=== PATIENT | female | born 1975 | race African-American/Black ===

== ENCOUNTER 2017-05-19 12:09 | Emergency (ER) | payer MEDICAID ==
[~2017-05-19] VITALS: Ht 165.1 cm; Wt 102.0 kg
[~2017-05-19 12:09] MED LIST: ALBU18HF2 IH; FLUT1DIS3 IH; LEVO500T2 PO
[2017-05-19] MEDS ORDERED: ACETAMINOPHEN 325MG TABLET PO ONE (18:15)
[2017-05-19] MEDS ORDERED: IBUPROFEN 800MG TABLET PO ONE (18:15)
[2017-05-19 18:46] VITALS: BP 155/90
== END 2017-05-19 18:46 | disposition home or self-care (01) ==
LOC: ER 13:50
DX: M54.5 Low back pain (principal); G89.29 Other chronic pain; I10 Essential (primary) hypertension; E66.9 Obesity, unspecified; J44.1 Chronic obstructive pulmonary disease with (acute) exacerbation; F17.200 Nicotine dependence, unspecified, uncomplicated
CPT/HCPCS: 99283

== ENCOUNTER 2018-02-01 09:21 | Inpatient (IN) | payer MEDICAID ==
[~2018-02-01] VITALS: Ht 175.3 cm; Wt 104.3 kg
[2018-02-01 10:39] LABS: BASOPHILS % 0.3 % (0.0-2.0); EOSINOPHILS % 2.7 % (0.0-5.0); HEMATOCRIT. 36.5 % (36.0-48.0); HEMOGLOBIN. 11.2 g/dL (12.0-16.0); MEAN CORPUSCULAR VOLUME 81.2 fL (81.0-99.0); MEAN PLATELET VOLUME 8.3 fl (7.4-10.4); MONOCYTES % 6.6 % (2.0-8.0); NEUTROPHILS % 39.4 % (40.0-76.0); PLATELET 209 x1000/uL (130-400); RED BLOOD CELL COUNT 4.49 mill/uL (4.2-5.4); RED CELL DISTRIBUTION WIDTH 34.6 % (11.6-14.6)
[2018-02-01 10:47] LABS: CHLORIDE 104 mEq/L (98-107)
[2018-02-01 10:54] LABS: PROTHROMBIN TIME 9.7 sec (9.1-11.1)
[2018-02-01 11:03] LABS: ETHANOL BLOOD 369 mg/dL
[2018-02-01 11:06] LABS: HCG SCREEN NEGATIVE
[2018-02-01] MEDS ORDERED: VANCOMYCIN 1 G PREMIX 200 ML IV SCH ×2 (11:15→13:45)
[2018-02-01] MEDS ORDERED: PIPERACILLIN/TAZOBACTAM 3.375GM/50ML PREMIX IV ONE (11:15)
[2018-02-01 11:20] LABS: PLATELET ESTIMATE NORMAL
[2018-02-01] MEDS ORDERED: FOLIC ACID 1 MG, THIAMINE HCL 100 MG, MVI, ADULT NO.1 10 ML in DEXTROSE 5% WATER 1,000 ML IV ONE ×4 (12:45)
[2018-02-01] MEDS ORDERED: ACETAMINOPHEN 325MG TABLET PO PRN ×2 (13:15→13:45)
[2018-02-01] MEDS ORDERED: IPRATROPIUM/ALBUTEROL 0.5-3(2.5)MG/3ML NEB INH PRN (13:45)
[2018-02-01] MEDS ORDERED: NA PHOS,M-B/NA PHOS,DI-BA ENEMA 118ML PR PRN (13:45)
[2018-02-01] MEDS ORDERED: HYDROMORPHONE HCL/PF 2MG/ML CPJ IV PRN (13:45)
[2018-02-01] MEDS ORDERED: PIPERACILLIN/TAZ 3.375G PREMIX 50 ML IV SCH (13:45)
[2018-02-01] MEDS ORDERED: MAGNESIUM/ALUMINUM HYDROXIDE/SIMETHICONE 30ML UDC PO PRN (13:45)
[2018-02-01] MEDS ORDERED: HYDROCODONE/ACETAMINOPHEN 5/325MG TABLET PO PRN (13:45)
[2018-02-01] MEDS ORDERED: HYDRALAZINE 20MG/ML VIAL IV PRN (13:45)
[2018-02-01] MEDS ORDERED: CLONIDINE 0.1MG TABLET PO PRN (13:45)
[2018-02-01] MEDS ORDERED: LORAZEPAM 2MG/ML CPJ IV PRN (13:45)
[2018-02-01] MEDS ORDERED: GUAIFENESIN 200MG/10ML SUGAR FREE UDC PO PRN (13:45)
[2018-02-01] MEDS ORDERED: DIPHENHYDRAMINE 50MG/ML VIAL IV PRN (13:45)
[2018-02-01] MEDS ORDERED: ONDANSETRON HCL 4MG/2ML INJ IV PRN (13:45)
[2018-02-01] MEDS ORDERED: DOCUSATE SODIUM 100MG CAPSULE PO PRN (13:45)
[2018-02-01 16:09] LABS: CLARITY URINE CLEAR (CLEAR); COLOR URINE YELLOW (YELLOW); KETONES URINE NEGATIVE (NEGATIVE); LEUKOCYTE ESTERASE URINE NEGATIVE (NEGATIVE); NITRITE URINE NEGATIVE (NEGATIVE); OCCULT BLOOD URINE NEGATIVE (NEGATIVE); PH URINE 5.5 (4.5-8.0); PROTEIN URINE NEGATIVE (NEGATIVE); SPECIFIC GRAVITY URINE 1.006 (1.005-1.030); UROBILINOGEN URINE 0.2 E.U./dL (0.2-1.0)
[2018-02-01 16:27] LABS: *AMPHETAMINES SCREEN URINE NEGATIVE (NEGATIVE); *BARBITURATES SCREEN URINE NEGATIVE (NEGATIVE); *BENZODIAZEPINES SCREEN URINE NEGATIVE (NEGATIVE); *COCAINE SCREEN URINE NEGATIVE (NEGATIVE)
[2018-02-01 16:28] LABS: CANNABINOID URINE SCREEN NEGATIVE (NEGATIVE); METHADONE URINE SCREEN NEGATIVE (NEGATIVE); OPIATES URINE SCREEN NEGATIVE (NEGATIVE); PHENCYCLIDINE URINE SCREEN NEGATIVE (NEGATIVE)
[2018-02-01 18:00] VITALS: BP 115/76
[2018-02-01] MEDS: SODIUM CHLORIDE 0.9% 1,000 ML IV SCH (19:09)
[2018-02-01 20:00] VITALS: BP 104/59
[2018-02-01 20:24] VITALS: BP 104/59
[2018-02-01] MEDS: ENOXAPARIN 30MG/0.3ML SYR SUBCUT SCH (20:50)
[2018-02-01] MEDS: SODIUM CHLORIDE 0.9% INJ 3ML FLUSH IVF SCH (20:52)
[2018-02-02] VITALS: BP 110/55
[2018-02-02 04:00] VITALS: BP 100/37
[2018-02-02] MEDS: SODIUM CHLORIDE 0.9% INJ 3ML FLUSH IVF SCH ×2 (06:01→13:56)
[2018-02-02 06:32] LABS: HEMATOCRIT. 23.3 % (36.0-48.0); HEMOGLOBIN. 7.3 g/dL (12.0-16.0); MEAN CORPUSCULAR HEMOGLOBIN 25.2 pg (28.0-32.0); MEAN CORPUSCULAR VOLUME 80.3 fL (81.0-99.0); MEAN PLATELET VOLUME 8.3 fl (7.4-10.4); PLATELET 143 x1000/uL (130-400); RED CELL DISTRIBUTION WIDTH 35.2 % (11.6-14.6)
[2018-02-02 07:10] LABS: CHLORIDE 107 mEq/L (98-107)
[2018-02-02 07:21] LABS: C REACTIVE PROTEIN QUANT 2.5 mg/L (0.0-3.0)
[2018-02-02 07:24] LABS: CREATINE KINASE 74 IU/L (26-192)
[2018-02-02 08:00] VITALS: BP 105/51
[2018-02-02] MEDS: SODIUM CHLORIDE 0.9% 1,000 ML IV SCH ×4 (08:54→22:21)
[2018-02-02] MEDS: ENOXAPARIN 30MG/0.3ML SYR SUBCUT SCH ×2 (08:55→20:21)
[2018-02-02 10:52] LABS: PLATELET ESTIMATE NORMAL
[2018-02-02 12:00] VITALS: BP 112/51
[2018-02-02 16:00] VITALS: BP 120/48
[2018-02-02 20:00] VITALS: BP 130/74
[2018-02-03] VITALS (7 sets, daily range): BP systolic 148–161; BP diastolic 65–86
[2018-02-03] MEDS: SODIUM CHLORIDE 0.9% 1,000 ML IV SCH ×2 (01:50→05:05)
[2018-02-03] MEDS: ENOXAPARIN 30MG/0.3ML SYR SUBCUT SCH (08:52)
[2018-02-03 14:04] LABS: HEMATOCRIT 22.9 % (36.0-48.0); HEMOGLOBIN 7.2 g/dL (12.0-16.0); MEAN CORPUSCULAR HEMOGLOBIN 25.1 pg (28.0-32.0); PLATELET 74 x1000/uL (130-400); RED BLOOD CELL COUNT 2.87 mill/uL (4.2-5.4); RED CELL DISTRIBUTION WIDTH 34.7 % (11.6-14.6)
== END 2018-02-03 17:55 | disposition home or self-care (01) | DRG 344 ==
LOC: ER 09:21 → 5WST 12:48 → EDBEDREQ 12:58 → EDBEDREQTM 12:58 → ENRESERV 13:41
PROVIDERS: ADMIT Internal Medicine; ATTEND Internal Medicine
DX: M86.672 Other chronic osteomyelitis, left ankle and foot (principal); R65.11 Systemic inflammatory response syndrome (SIRS) of non-infectious origin with acute organ dysfunction; K85.90 Acute pancreatitis without necrosis or infection, unspecified; E87.2 Acidosis; F10.129 Alcohol abuse with intoxication, unspecified; J44.9 Chronic obstructive pulmonary disease, unspecified; D72.819 Decreased white blood cell count, unspecified; I10 Essential (primary) hypertension; Z91.14 Patient's other noncompliance with medication regimen; Z79.2 Long term (current) use of antibiotics
CPT/HCPCS: 36415; 71045; 73620; 80305; 82140; 82550; 83605; 83880; 84484; 84703; 85027; 86140; 93005; 93970; 96365; 96366; 96367; 99285; C1893; G0482; J1170; J1650; J2543; J3370; J3411; J3490; J7030; J7070

== ENCOUNTER 2018-10-14 09:21 | Inpatient (IN) | payer MEDICAID ==
[~2018-10-14] VITALS: Ht 176.5 cm; Wt 110.7 kg
[2018-10-14] MEDS ORDERED: VANCOMYCIN 1 G PREMIX 200 ML IV SCH ×2 (10:15→17:00)
[2018-10-14] MEDS ORDERED: PIPERACILLIN/TAZ 3.375G PREMIX 50 ML IV ONE (10:15)
[2018-10-14 11:11] LABS: BASOPHILS % 0.4 % (0.0-2.0); EOSINOPHILS % 1.2 % (0.0-5.0); HEMATOCRIT. 26.2 % (36.0-48.0); HEMOGLOBIN. 8.4 g/dL (12.0-16.0); LYMPHOCYTES % 15.3 % (20.0-50.0); MEAN CORPUSCULAR HEMOGLOBIN 27.2 pg (28.0-32.0); MEAN CORPUSCULAR VOLUME 85.1 fL (81.0-99.0); MEAN PLATELET VOLUME 6.8 fl (7.4-10.4); MONOCYTES % 8.1 % (2.0-8.0); PLATELET 157 x1000/uL (130-400); RED BLOOD CELL COUNT 3.07 mill/uL (4.2-5.4)
[2018-10-14 11:16] LABS: INR 1.1; PROTHROMBIN TIME 11.2 sec (9.6-11.0)
[2018-10-14 11:17] LABS: CHLORIDE 106 mEq/L (98-107)
[2018-10-14 11:49] LABS: PLATELET ESTIMATE NORMAL
[2018-10-14 12:01] LABS: CLARITY URINE TURBID (CLEAR); COLOR URINE YELLOW (YELLOW); KETONES URINE NEGATIVE (NEGATIVE); LEUKOCYTE ESTERASE URINE 2+ (NEGATIVE); NITRITE URINE NEGATIVE (NEGATIVE); OCCULT BLOOD URINE NEGATIVE (NEGATIVE); PROTEIN URINE NEGATIVE (NEGATIVE); SPECIFIC GRAVITY URINE 1.013 (1.005-1.030); UROBILINOGEN URINE 0.2 E.U./dL (0.2-1.0)
[2018-10-14] MEDS ORDERED: SODIUM CHLORIDE 0.9% 1000ML BAG (SEPSIS BOLUS) IV ONE (12:45)
[2018-10-14 14:50] VITALS: BP 129/69
[2018-10-14 15:00] VITALS: BP 129/69
[2018-10-14] MEDS: METOPROLOL TARTRATE 50MG TABLET PO SCH ×2 (19:05→21:22)
[2018-10-14 20:00] VITALS: BP 118/54
[2018-10-14] MEDS: CEFTRIAXONE 1 G PREMIX 50 ML IV SCH (20:19)
[2018-10-14] MEDS: NYSTATIN POWDER 15GM TOP SCH (20:20)
[2018-10-14] MEDS ORDERED: ONDANSETRON HCL 4MG/2ML INJ IV PRN (20:45)
[2018-10-14] MEDS ORDERED: HYDROCODONE/ACETAMINOPHEN 10/325MG TABLET PO PRN (20:45)
[2018-10-14] MEDS ORDERED: VANCOMYCIN 2,000 MG in DEXT 5% WATER 500 ML IV NR (21:00)
[2018-10-14] MEDS: ACETAMINOPHEN 325MG TABLET PO PRN (21:22)
[2018-10-14] MEDS: AMLODIPINE 10MG TABLET PO SCH (21:23)
[2018-10-14] MEDS: FUROSEMIDE 40MG/4ML VIAL IVP SCH (22:56)
[2018-10-15 00:32] VITALS: BP 98/42
[2018-10-15 04:00] VITALS: BP 123/54
[2018-10-15] MEDS ORDERED: DIPHENHYDRAMINE 50MG/ML VIAL IV PRN (07:00)
[2018-10-15 08:29] VITALS: BP 108/48
[2018-10-15] MEDS: METOPROLOL TARTRATE 50MG TABLET PO SCH ×2 (09:00→22:06)
[2018-10-15] MEDS: AMLODIPINE 10MG TABLET PO SCH (09:00)
[2018-10-15] MEDS: FUROSEMIDE 40MG/4ML VIAL IVP SCH (10:01)
[2018-10-15] MEDS: NYSTATIN POWDER 15GM TOP SCH ×2 (10:06→17:47)
[2018-10-15] MEDS: ENOXAPARIN 30MG/0.3ML SYR SUBCUT SCH ×2 (10:08→22:05)
[2018-10-15 12:06] VITALS: BP 102/48
[2018-10-15] MEDS: VANCOMYCIN 1 G PREMIX 200 ML IV SCH ×2 (12:08→22:03)
[2018-10-15 16:01] VITALS: BP 106/48
[2018-10-15] MEDS: ACETAMINOPHEN 325MG TABLET PO PRN (17:45)
[2018-10-15 20:00] VITALS: BP 122/57
[2018-10-15] MEDS: CEFTRIAXONE 1 G PREMIX 50 ML IV SCH (22:03)
[2018-10-16] VITALS: BP 104/41
[2018-10-16 04:00] VITALS: BP 120/62
[2018-10-16 08:00] VITALS: BP 119/59
[2018-10-16] MEDS: VANCOMYCIN 1 G PREMIX 200 ML IV SCH (08:47)
[2018-10-16] MEDS: FUROSEMIDE 40MG/4ML VIAL IVP SCH (08:47)
[2018-10-16] MEDS: METOPROLOL TARTRATE 50MG TABLET PO SCH ×2 (08:48→20:53)
[2018-10-16] MEDS: PANTOT AC/MIN OIL/PET HY-PHL OINT (AQUAPHOR) TOP SCH (08:48)
[2018-10-16] MEDS: NYSTATIN POWDER 15GM TOP SCH ×2 (08:48→16:14)
[2018-10-16] MEDS: AMLODIPINE 10MG TABLET PO SCH (08:49)
[2018-10-16] MEDS: ENOXAPARIN 30MG/0.3ML SYR SUBCUT SCH ×2 (08:49→20:52)
[2018-10-16 11:26] LABS: CHLORIDE 105 mEq/L (98-107)
[2018-10-16] MEDS ORDERED: METO-539 PO (11:49)
[2018-10-16] MEDS ORDERED: AMLO10TA80 PO (11:49)
[2018-10-16] MEDS ORDERED: CEPH-569 MT (11:50)
[2018-10-16 12:00] VITALS: BP 95/58
[2018-10-16 14:25] LABS: BASOPHILS % 0.3 % (0.0-2.0); EOSINOPHILS % 2.8 % (0.0-5.0); HEMATOCRIT. 22.5 % (36.0-48.0); HEMOGLOBIN. 7.3 g/dL (12.0-16.0); LYMPHOCYTES % 17.3 % (20.0-50.0); MEAN CORPUSCULAR HEMOGLOBIN 28.2 pg (28.0-32.0); MEAN CORPUSCULAR VOLUME 87.2 fL (81.0-99.0); MEAN PLATELET VOLUME 7.9 fl (7.4-10.4); MONOCYTES % 10.1 % (2.0-8.0); NEUTROPHILS % 69.5 % (40.0-76.0); PLATELET 112 x1000/uL (130-400); RED BLOOD CELL COUNT 2.58 mill/uL (4.2-5.4); RED CELL DISTRIBUTION WIDTH 26.6 % (11.6-14.6)
[2018-10-16 14:30] LABS: CHLORIDE 104 mEq/L (98-107)
[2018-10-16] MEDS: ACETAMINOPHEN 325MG TABLET PO PRN (15:01)
[2018-10-16 16:00] VITALS: BP 104/42
[2018-10-16 20:00] VITALS: BP 98/41
[2018-10-16] MEDS: CEFTRIAXONE 1 G PREMIX 50 ML IV SCH (20:52)
[2018-10-17] VITALS: BP 95/41
[2018-10-17 04:00] VITALS: BP 136/58
[2018-10-17 06:06] LABS: BASOPHILS % 0.5 % (0.0-2.0); EOSINOPHILS % 3.5 % (0.0-5.0); HEMATOCRIT. 21.9 % (36.0-48.0); HEMOGLOBIN. 7.1 g/dL (12.0-16.0); LYMPHOCYTES % 24.3 % (20.0-50.0); MEAN CORPUSCULAR VOLUME 87.2 fL (81.0-99.0); MEAN PLATELET VOLUME 7.5 fl (7.4-10.4); MONOCYTES % 13.5 % (2.0-8.0); NEUTROPHILS % 58.2 % (40.0-76.0); PLATELET 117 x1000/uL (130-400); RED BLOOD CELL COUNT 2.52 mill/uL (4.2-5.4); RED CELL DISTRIBUTION WIDTH 26.9 % (11.6-14.6)
[2018-10-17 06:24] LABS: CHLORIDE 105 mEq/L (98-107)
[2018-10-17] MEDS: FUROSEMIDE 40MG/4ML VIAL IVP SCH (08:43)
[2018-10-17] MEDS: NYSTATIN POWDER 15GM TOP SCH ×2 (08:44→18:18)
[2018-10-17] MEDS: PANTOT AC/MIN OIL/PET HY-PHL OINT (AQUAPHOR) TOP SCH (08:44)
[2018-10-17] MEDS: METOPROLOL TARTRATE 50MG TABLET PO SCH ×2 (08:44→21:00)
[2018-10-17] MEDS: ENOXAPARIN 30MG/0.3ML SYR SUBCUT SCH (08:44)
[2018-10-17] MEDS: AMLODIPINE 10MG TABLET PO SCH (08:44)
[2018-10-17 08:46] LABS: TOTAL IRON BINDING CAPACITY 170 ug/dL (250-450)
[2018-10-17 09:43] LABS: FOLIC ACID (FOLATE) SERUM 5.3 ng/mL (>5.38)
[2018-10-17 16:35] VITALS: BP 108/39
[2018-10-17] MEDS: FERROUS SULFATE 325MG TABLET PO SCH (17:50)
[2018-10-17] MEDS ORDERED: FOLI-43 MT (18:41)
[2018-10-17] MEDS ORDERED: FERR236T3 MT (18:41)
[2018-10-17 20:00] VITALS: BP 103/51
[2018-10-17] MEDS: CEFTRIAXONE 1 G PREMIX 50 ML IV SCH (22:20)
[2018-10-17] MEDS: VANCOMYCIN 1 G PREMIX 200 ML IV SCH (22:20)
[2018-10-18] VITALS: BP 108/53
[2018-10-18 04:00] VITALS: BP 108/52
[2018-10-18 08:11] VITALS: BP 129/70
[2018-10-18] MEDS: FUROSEMIDE 40MG/4ML VIAL IVP SCH (08:54)
[2018-10-18] MEDS: DOCUSATE SODIUM 250MG CAPSULE PO SCH ×2 (08:55→17:33)
[2018-10-18] MEDS: METOPROLOL TARTRATE 50MG TABLET PO SCH ×2 (08:55→21:40)
[2018-10-18] MEDS: FOLIC ACID 1MG TABLET PO SCH (08:55)
[2018-10-18] MEDS: FERROUS SULFATE 325MG TABLET PO SCH ×3 (08:55→17:33)
[2018-10-18] MEDS: AMLODIPINE 10MG TABLET PO SCH (08:55)
[2018-10-18] MEDS: ASCORBIC ACID 500 MG TABLET PO SCH ×2 (08:55→17:33)
[2018-10-18] MEDS: PANTOT AC/MIN OIL/PET HY-PHL OINT (AQUAPHOR) TOP SCH (09:02)
[2018-10-18] MEDS: NYSTATIN POWDER 15GM TOP SCH ×2 (09:02→17:33)
[2018-10-18 12:00] VITALS: BP 117/68
[2018-10-18 16:00] VITALS: BP 121/70
[2018-10-18 20:00] VITALS: BP 121/45
[2018-10-18] MEDS: CEFTRIAXONE 1 G PREMIX 50 ML IV SCH (20:18)
[2018-10-18] MEDS: VANCOMYCIN 1 G PREMIX 200 ML IV SCH (22:01)
[2018-10-19] VITALS: BP 114/54
[2018-10-19 04:00] VITALS: BP 102/58
[2018-10-19 08:00] VITALS: BP 118/56
[2018-10-19] MEDS: NYSTATIN POWDER 15GM TOP SCH ×2 (08:38→18:09)
[2018-10-19] MEDS: FUROSEMIDE 40MG/4ML VIAL IVP SCH (08:38)
[2018-10-19] MEDS: FERROUS SULFATE 325MG TABLET PO SCH ×3 (08:38→18:07)
[2018-10-19] MEDS: METOPROLOL TARTRATE 50MG TABLET PO SCH ×2 (08:38→20:42)
[2018-10-19] MEDS: PANTOT AC/MIN OIL/PET HY-PHL OINT (AQUAPHOR) TOP SCH (08:38)
[2018-10-19] MEDS: DOCUSATE SODIUM 250MG CAPSULE PO SCH ×2 (08:38→18:07)
[2018-10-19] MEDS: ASCORBIC ACID 500 MG TABLET PO SCH ×2 (08:38→18:07)
[2018-10-19] MEDS: FOLIC ACID 1MG TABLET PO SCH (08:38)
[2018-10-19] MEDS: AMLODIPINE 10MG TABLET PO SCH (08:38)
[2018-10-19 12:22] VITALS: BP 120/58
[2018-10-19 16:04] VITALS: BP 110/53
[2018-10-19 20:00] VITALS: BP 111/56
[2018-10-19] MEDS: CEFTRIAXONE 1 G PREMIX 50 ML IV SCH (20:41)
[2018-10-19] MEDS: VANCOMYCIN 1 G PREMIX 200 ML IV SCH (20:42)
[2018-10-20] VITALS: BP 115/66
[2018-10-20 04:00] VITALS: BP 116/55
[2018-10-20 08:42] LABS: CHLORIDE 103 mEq/L (98-107)
[2018-10-20] MEDS: FUROSEMIDE 40MG/4ML VIAL IVP SCH (10:43)
[2018-10-20] MEDS: AMLODIPINE 10MG TABLET PO SCH (10:44)
[2018-10-20] MEDS: PANTOT AC/MIN OIL/PET HY-PHL OINT (AQUAPHOR) TOP SCH (10:44)
[2018-10-20] MEDS: NYSTATIN POWDER 15GM TOP SCH ×2 (10:44→18:01)
[2018-10-20] MEDS: DOCUSATE SODIUM 250MG CAPSULE PO SCH ×2 (10:45→18:01)
[2018-10-20] MEDS: FERROUS SULFATE 325MG TABLET PO SCH ×3 (10:45→18:01)
[2018-10-20] MEDS: METOPROLOL TARTRATE 50MG TABLET PO SCH ×2 (10:45→21:00)
[2018-10-20] MEDS: ASCORBIC ACID 500 MG TABLET PO SCH ×2 (10:45→18:01)
[2018-10-20] MEDS: FOLIC ACID 1MG TABLET PO SCH (10:45)
[2018-10-20 12:00] VITALS: BP 101/40
[2018-10-20 16:00] VITALS: BP 102/43
[2018-10-20] MEDS ORDERED: VANCOMYCIN 750 MG PREMIX 150 ML IV SCH (18:00)
[2018-10-20] MEDS: VANCOMYCIN 750 MG PREMIX 150 ML IV SCH (18:13)
[2018-10-20 20:00] VITALS: BP 101/49
[2018-10-20] MEDS: CEFTRIAXONE 1 G PREMIX 50 ML IV SCH (21:01)
[2018-10-21] VITALS: BP 115/58
[2018-10-21 04:00] VITALS: BP 114/66
[2018-10-21 08:00] VITALS: BP 116/63
[2018-10-21] MEDS: FOLIC ACID 1MG TABLET PO SCH (09:58)
[2018-10-21] MEDS: DOCUSATE SODIUM 250MG CAPSULE PO SCH ×2 (09:58→17:00)
[2018-10-21] MEDS: FERROUS SULFATE 325MG TABLET PO SCH ×3 (09:59→17:12)
[2018-10-21] MEDS: AMLODIPINE 10MG TABLET PO SCH (09:59)
[2018-10-21] MEDS: ASCORBIC ACID 500 MG TABLET PO SCH ×2 (09:59→17:12)
[2018-10-21] MEDS: FUROSEMIDE 40MG/4ML VIAL IVP SCH (10:01)
[2018-10-21] MEDS: METOPROLOL TARTRATE 50MG TABLET PO SCH ×2 (10:01→21:00)
[2018-10-21] MEDS: PANTOT AC/MIN OIL/PET HY-PHL OINT (AQUAPHOR) TOP SCH (10:02)
[2018-10-21] MEDS: NYSTATIN POWDER 15GM TOP SCH ×2 (10:03→17:13)
[2018-10-21 12:00] VITALS: BP 114/56
[2018-10-21] MEDS: VANCOMYCIN 750 MG PREMIX 150 ML IV SCH (12:50)
[2018-10-21 16:00] VITALS: BP 112/51
[2018-10-21 20:00] VITALS: BP 101/44
[2018-10-21] MEDS: CEFTRIAXONE 1 G PREMIX 50 ML IV SCH (21:23)
[2018-10-22] VITALS: BP 104/44
[2018-10-22 04:00] VITALS: BP 113/68
[2018-10-22 08:00] VITALS: BP 118/57
[2018-10-22] MEDS: FOLIC ACID 1MG TABLET PO SCH (08:34)
[2018-10-22] MEDS: ASCORBIC ACID 500 MG TABLET PO SCH ×2 (08:34→18:18)
[2018-10-22] MEDS: FERROUS SULFATE 325MG TABLET PO SCH ×3 (08:34→18:18)
[2018-10-22] MEDS: FUROSEMIDE 40MG/4ML VIAL IVP SCH (08:35)
[2018-10-22] MEDS: METOPROLOL TARTRATE 50MG TABLET PO SCH ×2 (08:35→21:00)
[2018-10-22] MEDS: DOCUSATE SODIUM 250MG CAPSULE PO SCH ×2 (08:35→18:18)
[2018-10-22] MEDS: PANTOT AC/MIN OIL/PET HY-PHL OINT (AQUAPHOR) TOP SCH (08:36)
[2018-10-22] MEDS: NYSTATIN POWDER 15GM TOP SCH ×2 (08:36→18:19)
[2018-10-22] MEDS: AMLODIPINE 10MG TABLET PO SCH (08:38)
[2018-10-22 12:00] VITALS: BP 107/47
[2018-10-22 16:00] VITALS: BP 124/58
[2018-10-22 18:08] LABS: HEMATOCRIT. 24.2 % (36.0-48.0); HEMOGLOBIN. 7.7 g/dL (12.0-16.0); MEAN CORPUSCULAR HEMOGLOBIN 28.2 pg (28.0-32.0); MEAN CORPUSCULAR VOLUME 88.5 fL (81.0-99.0); MEAN PLATELET VOLUME 7.9 fl (7.4-10.4); PLATELET 474 x1000/uL (130-400); RED BLOOD CELL COUNT 2.73 mill/uL (4.2-5.4); RED CELL DISTRIBUTION WIDTH 27.2 % (11.6-14.6)
[2018-10-22 20:00] VITALS: BP 112/52
[2018-10-22 20:13] LABS: PLATELET ESTIMATE SLIGHTLY INCREASED
[2018-10-23] VITALS: BP 115/91
[2018-10-23 04:00] VITALS: BP 130/63
[2018-10-23] MEDS: FERROUS SULFATE 325MG TABLET PO SCH ×3 (06:07→17:30)
[2018-10-23 08:02] VITALS: BP 104/57
[2018-10-23] MEDS: FUROSEMIDE 40MG/4ML VIAL IVP SCH (08:52)
[2018-10-23] MEDS: METOPROLOL TARTRATE 50MG TABLET PO SCH ×2 (08:52→21:41)
[2018-10-23] MEDS: ASCORBIC ACID 500 MG TABLET PO SCH ×2 (08:52→17:30)
[2018-10-23] MEDS: NYSTATIN POWDER 15GM TOP SCH ×2 (08:53→17:30)
[2018-10-23] MEDS: AMLODIPINE 10MG TABLET PO SCH (08:53)
[2018-10-23] MEDS: DOCUSATE SODIUM 250MG CAPSULE PO SCH ×2 (08:53→17:00)
[2018-10-23] MEDS: PANTOT AC/MIN OIL/PET HY-PHL OINT (AQUAPHOR) TOP SCH (08:54)
[2018-10-23] MEDS: FOLIC ACID 1MG TABLET PO SCH (09:15)
[2018-10-23 12:09] VITALS: BP 101/49
[2018-10-23 16:12] VITALS: BP 100/48
[2018-10-23 20:00] VITALS: BP 118/48
[2018-10-24] VITALS: BP 104/52
[2018-10-24 04:00] VITALS: BP 120/58
[2018-10-24 08:44] VITALS: BP 134/44
[2018-10-24] MEDS: FUROSEMIDE 40MG/4ML VIAL IVP SCH (08:58)
[2018-10-24] MEDS: DOCUSATE SODIUM 250MG CAPSULE PO SCH ×2 (08:58→16:43)
[2018-10-24] MEDS: AMLODIPINE 10MG TABLET PO SCH (08:59)
[2018-10-24] MEDS: FERROUS SULFATE 325MG TABLET PO SCH ×3 (08:59→16:43)
[2018-10-24] MEDS: ASCORBIC ACID 500 MG TABLET PO SCH ×2 (08:59→16:42)
[2018-10-24] MEDS: METOPROLOL TARTRATE 50MG TABLET PO SCH ×2 (08:59→21:00)
[2018-10-24] MEDS: FOLIC ACID 1MG TABLET PO SCH (08:59)
[2018-10-24] MEDS: NYSTATIN POWDER 15GM TOP SCH ×2 (09:02→16:42)
[2018-10-24] MEDS: PANTOT AC/MIN OIL/PET HY-PHL OINT (AQUAPHOR) TOP SCH (09:03)
[2018-10-24 11:53] VITALS: BP 138/48
[2018-10-24 15:47] VITALS: BP 108/47
[2018-10-24 20:41] VITALS: BP 108/59
[2018-10-25] VITALS (7 sets, daily range): BP systolic 101–129; BP diastolic 42–66
[2018-10-25] MEDS: FERROUS SULFATE 325MG TABLET PO SCH ×3 (09:10→17:50)
[2018-10-25] MEDS: FOLIC ACID 1MG TABLET PO SCH (09:12)
[2018-10-25] MEDS: AMLODIPINE 10MG TABLET PO SCH (09:12)
[2018-10-25] MEDS: ASCORBIC ACID 500 MG TABLET PO SCH ×2 (09:12→17:00)
[2018-10-25] MEDS: NYSTATIN POWDER 15GM TOP SCH ×2 (09:13→17:00)
[2018-10-25] MEDS: METOPROLOL TARTRATE 50MG TABLET PO SCH (09:13)
[2018-10-25] MEDS: PANTOT AC/MIN OIL/PET HY-PHL OINT (AQUAPHOR) TOP SCH (09:14)
[2018-10-25] MEDS: FUROSEMIDE 40MG/4ML VIAL IVP SCH (09:14)
[2018-10-25] MEDS: DOCUSATE SODIUM 250MG CAPSULE PO SCH ×2 (09:15→17:00)
== END 2018-10-25 21:43 | DRG 710 ==
LOC: ER 09:21 → 6WST 11:45 → EDBEDREQTM 11:57 → EDBEDREQ 11:57 → ENRESERV 13:11
PROVIDERS: ADMIT Family Medicine; ATTEND Family Medicine
PROC: 0JBN0ZZ Excision of Right Lower Leg Subcutaneous Tissue and Fascia, Open Approach (ICD-10-PCS; principal; 2018-10-15)
PROC: 0KBV0ZZ Excision of Right Foot Muscle, Open Approach (ICD-10-PCS; 2018-10-15)
DX: A41.9 Sepsis, unspecified organism (principal); L89.320 Pressure ulcer of left buttock, unstageable; E46 Unspecified protein-calorie malnutrition; E66.01 Morbid (severe) obesity due to excess calories; L03.115 Cellulitis of right lower limb; L97.919 Non-pressure chronic ulcer of unspecified part of right lower leg with unspecified severity; R17 Unspecified jaundice; N39.0 Urinary tract infection, site not specified; I87.2 Venous insufficiency (chronic) (peripheral); D63.8 Anemia in other chronic diseases classified elsewhere; I87.8 Other specified disorders of veins; F10.10 Alcohol abuse, uncomplicated; J44.9 Chronic obstructive pulmonary disease, unspecified; I10 Essential (primary) hypertension; G89.29 Other chronic pain; K59.00 Constipation, unspecified; F17.210 Nicotine dependence, cigarettes, uncomplicated; Z68.35 Body mass index [BMI] 35.0-35.9, adult; Z59.0 Homelessness; Z91.19 Patient's noncompliance with other medical treatment and regimen; Z79.51 Long term (current) use of inhaled steroids; Z79.899 Other long term (current) drug therapy; Z71.6 Tobacco abuse counseling
CPT/HCPCS: 36415; 71045; 73630; 80048; 80202; 81003; 82270; 82607; 82728; 82746; 83540; 83550; 83605; 84134; 84145; 84484; 85651; 86140; 93005; 93970; 96365; 96366; 97022; 97110; 97116; 97161; 97162; 97530; 99291; A6261; J0696; J1650; J1940; J2543; J3370; J7030; J7040; J7060